=== PATIENT | male | born 1965 ===

== ENCOUNTER 2023-08-29 14:57 | Inpatient (IN) | payer MEDICARE, MEDICAID ==
[~2023-08-29] VITALS: Ht 165.1 cm; Wt 90.7 kg
[2023-08-29] MEDS ORDERED: OMEP20 PO (15:11)
[2023-08-29] MEDS ORDERED: LORA-1370 PO (15:11)
[2023-08-29] MEDS ORDERED: DOCU-385 PO (15:11)
[2023-08-29] MEDS ORDERED: CLON-441 PO (15:11)
[2023-08-29] MEDS ORDERED: DIVA500T53 PO ×2 (15:11)
[2023-08-29] MEDS ORDERED: OLAN5TAB52 PO (15:11)
[2023-08-29] MEDS ORDERED: TAMS0.4C94 PO (15:11)
[2023-08-29] MEDS ORDERED: MAGN-169 PO (15:18)
[2023-08-29] MEDS ORDERED: BENZ-227 PO (15:18)
[2023-08-29] MEDS ORDERED: HYDROCODONE/APAP PO (15:18)
[2023-08-29] MEDS ORDERED: CEPACLZ PO (15:18)
[2023-08-29] MEDS ORDERED: ZOLP-280 PO (15:18)
[2023-08-29] MEDS ORDERED: GUAI118L41 PO (15:18)
[2023-08-29] MEDS ORDERED: LORA-999 PO (15:18)
[2023-08-29] MEDS ORDERED: GUAI100L37 PO (15:18)
[2023-08-29] MEDS ORDERED: ZINC56.713 TP (15:18)
[2023-08-29] MEDS ORDERED: ACET-2247 PO (15:18)
[2023-08-29 15:30] LABS: COVID AG,FIA SOURCE NASAL SWAB
[2023-08-29 15:39] LABS: BASOPHILS % (AUTO) 0.5 % (0.0-2.0); EOSINOPHILS % (AUTO) 0.8 % (1.0-6.0); HEMATOCRIT 40.2 % (41-53); HEMOGLOBIN 13.7 g/dL (13.5-17.5); LYMPHOCYTES # (AUTO) 2.9 K/uL (1.0-4.8); LYMPHOCYTES % (AUTO) 41.8 % (22.0-44.0); MEAN CORPUSCULAR HEMOGLOBIN 31.4 pg (26.0-34.0); MEAN CORPUSCULAR VOLUME 92 fL (80-100); MONOCYTES # (AUTO) 0.8 K/uL (0.1-1.0); MONOCYTES % (AUTO) 11.2 % (2.0-9.0); NEUTROPHILS # (AUTO) 3.1 K/uL (1.8-7.7); NEUTROPHILS % (AUTO) 45.7 % (40.0-70.0); PLATELET COUNT (AUTO) 131 K/uL (150-450); RED BLOOD CELL COUNT(AUTO) 4.36 MIL/uL (4.50-5.90); RED CELL DISTRIBUTION WIDTH 13.2 % (11.5-14.5); WHITE BLOOD COUNT (AUTO) 6.8 K/uL (4.5-11.0)
[2023-08-29 15:47] LABS: PH,URINE DRUG SCREEN 6.5 (5.0-8.0)
[2023-08-29 15:51] LABS: SARS-COV2 (COVID) ANTIGEN,FIA Negative (Negative)
[2023-08-29 15:51] LABS: ANION GAP 9 mmol/L (8-16); CALCIUM, TOTAL 9.2 mg/dL (8.8-10.5); CARBON DIOXIDE 28 mmol/L (22-29); CHLORIDE 95 mmol/L (98-107); CREATININE 0.65 mg/dL (0.60-1.30); GLOMERULAR FILTR. RATE CALC > 60 mL/min (>60); GLUCOSE,RANDOM 169 mg/dL (70-110); POTASSIUM 3.8 mmol/L (3.5-5.1); SODIUM SERUM 132 mmol/L (136-145); UREA NITROGEN, BLOOD 5 mg/dL (7-18)
[2023-08-29 15:54] LABS: ALANINE AMINOTRANSFERASE 27 U/L (12-78); ALBUMIN 3.3 g/dL (3.4-5.0); ALKALINE PHOSPHATASE 41 U/L (46-116); ASPARTATE AMINOTRANSFERASE 32 U/L (15-37); BILIRUBIN,TOTAL 0.4 mg/dL (0.1-1.0); TOTAL PROTEIN, SERUM 7.3 g/dL (6.4-8.2)
[2023-08-29 15:54] LABS: ALCOHOL, URINE DRUG SCREEN NEGATIVE (NEGATIVE); AMPHET/METH SCREEN,URINE NEGATIVE (NEGATIVE); BARBITURATE SCREEN, URINE NEGATIVE (NEGATIVE); BENZODIAZEPINES SCREEN,URINE NEGATIVE (NEGATIVE); CANNABINOID SCREEN,URINE NEGATIVE (NEGATIVE); COCAINE SCREEN,URINE NEGATIVE (NEGATIVE); METHADONE SCREEN, URINE NEGATIVE (NEGATIVE); OPIATE SCREEN,URINE NEGATIVE (NEGATIVE); PHENCYCLIDINE SCREEN,URINE NEGATIVE (NEGATIVE)
[2023-08-29 15:59] LABS: ALCOHOL, BLOOD (SERUM) < 3 mg/dL (0-10)
[2023-08-29] MEDS: DOCUSATE SODIUM 250 MG CAPSULE PO SCH (21:00)
[2023-08-29] MEDS: OLANZapine 5 MG TABLET PO SCH (21:46)
[2023-08-29] MEDS: CloNIDine HCL 0.1 MG TABLET PO SCH (21:47)
[2023-08-30] MEDS: ALPRAZolam 0.5 MG TABLET PO PRN (04:03)
[2023-08-30] MEDS: OMEPRAZOLE 20 MG CAPSULE PO SCH (06:55)
[2023-08-30] MEDS: TAMSULOSIN HCL 0.4 MG CAPSULE PO SCH (11:25)
[2023-08-30] MEDS: LORATADINE 10 MG TABLET PO SCH (11:25)
[2023-08-30 17:02] VITALS: BP 148/105; PULSE 97; RESP 17
[2023-08-30] MEDS: DIVALPROEX SODIUM 500 MG ER TABLET PO SCH (18:20)
[2023-08-30 20:56] VITALS: BP 99/68; PULSE 92; RESP 18
[2023-08-30] MEDS: ZOLPIDEM TARTRATE 10 MG TABLET PO PRN (21:03)
[2023-08-30] MEDS ORDERED: PROMETHAZINE HCL 25 MG TABLET PO PRN (22:45)
[2023-08-30] MEDS ORDERED: LOPERAMIDE HCL 2 MG CAPSULE PO PRN (22:45)
[2023-08-30] MEDS ORDERED: TUBERCULIN, PURIFIED PROTEIN DERIVATIVE 5 TU/0.1 ML SYRINGE ID ONE (22:45)
[2023-08-30] MEDS ORDERED: MAG HYDROX/ALUMINUM HYD/SIMETH ES 30 ML SUSPENSION UDCUP PO PRN (22:45)
[2023-08-30] MEDS ORDERED: GuaiFENesin/D-METHORPHAN [SUGAR-FREE] 200-20MG/10 ML SYRUP UDCUP PO PRN (22:45)
[2023-08-30] MEDS ORDERED: ACETAMINOPHEN 325 MG TABLET PO PRN (22:45)
[2023-08-30] MEDS ORDERED: MAGNESIUM HYDROXIDE SUSPENSION 30 ML UDCUP PO PRN (22:45)
[2023-08-31 07:33] LABS: HEMOGLOBIN A1C 6.6 % (3.8-5.6)
[2023-08-31 07:49] LABS: FREE T4 (FREE THYROXINE) 1.06 ng/dL (0.76-1.46); THYROID STIMULATING HORMONE 4.16 uIU/mL (0.36-3.74)
[2023-08-31 08:39] LABS: BASOPHILS % (AUTO) 0.5 % (0.0-2.0); HEMATOCRIT 42.5 % (41-53); HEMOGLOBIN 14.4 g/dL (13.5-17.5); LYMPHOCYTES # (AUTO) 2.5 K/uL (1.0-4.8); LYMPHOCYTES % (AUTO) 34.8 % (22.0-44.0); MEAN CORPUSCULAR HEMOGLOBIN 31.4 pg (26.0-34.0); MEAN CORPUSCULAR HGB CONC 33.8 G/dL (31.0-37.0); MEAN CORPUSCULAR VOLUME 93 fL (80-100); MONOCYTES # (AUTO) 1.2 K/uL (0.1-1.0); MONOCYTES % (AUTO) 16.9 % (2.0-9.0); NEUTROPHILS # (AUTO) 3.4 K/uL (1.8-7.7); NEUTROPHILS % (AUTO) 46.8 % (40.0-70.0); PLATELET COUNT (AUTO) 113 K/uL (150-450); RED BLOOD CELL COUNT(AUTO) 4.56 MIL/uL (4.50-5.90); RED CELL DISTRIBUTION WIDTH 13.3 % (11.5-14.5); WHITE BLOOD COUNT (AUTO) 7.2 K/uL (4.5-11.0)
[2023-08-31] MEDS: THIAMINE 100 MG TABLET PO SCH (08:45)
[2023-08-31] MEDS: MULTIVITAMINS WITH MINERALS, THERAPEUTIC TABLET PO SCH (08:45)
[2023-08-31] MEDS: FOLIC ACID 1 MG TABLET PO SCH (08:45)
[2023-08-31 08:48] LABS: ANION GAP 8 mmol/L (8-16); CALCIUM, TOTAL 9.7 mg/dL (8.8-10.5); CARBON DIOXIDE 31 mmol/L (22-29); CHLORIDE 99 mmol/L (98-107); CREATININE 0.68 mg/dL (0.60-1.30); GLOMERULAR FILTR. RATE CALC > 60 mL/min (>60); GLUCOSE,RANDOM 130 mg/dL (70-110); POTASSIUM 4.1 mmol/L (3.5-5.1); SODIUM SERUM 138 mmol/L (136-145); UREA NITROGEN, BLOOD 10 mg/dL (7-18)
[2023-08-31 09:00] VITALS: BP 144/98; PULSE 97; RESP 18; TEMP 98.2
[2023-08-31] MEDS: HydrOXYzine PAMOATE 50 MG CAPSULE PO PRN (09:03)
[2023-08-31 16:23] VITALS: BP 130/70; PULSE 102; RESP 18
[2023-08-31 20:07] VITALS: BP 148/90; PULSE 73; RESP 18; TEMP 97.5
[2023-09-01 08:24] VITALS: BP 132/79; PULSE 76; RESP 16; TEMP 97.8
[2023-09-01] MEDS: OLANZapine 5 MG TABLET PO SCH (08:29)
[2023-09-01 16:29] VITALS: BP 136/80; PULSE 98; RESP 18
[2023-09-01 20:06] VITALS: BP 149/70; PULSE 93; RESP 18; TEMP 97.5
[2023-09-02 09:18] VITALS: BP 142/92; PULSE 100; RESP 18; TEMP 97.8
[2023-09-02 16:38] VITALS: BP 145/99; PULSE 110; RESP 18
[2023-09-02 20:10] VITALS: BP 144/85; PULSE 100; RESP 18; TEMP 98.4
[2023-09-03 09:30] VITALS: BP 128/68; PULSE 83; RESP 18; TEMP 98
[2023-09-03 16:30] VITALS: BP 106/72; PULSE 76
[2023-09-03 20:13] VITALS: BP 121/78; PULSE 78; RESP 18; TEMP 97.3
[2023-09-03 20:14] VITALS: BP 139/71; PULSE 75; RESP 18; TEMP 97.7
[2023-09-04 08:45] VITALS: BP 137/87; PULSE 103; RESP 18; TEMP 97.9
[2023-09-04] MEDS ORDERED: OLAN5TAB52 PO (11:46)
[2023-09-04] MEDS ORDERED: DIVA500T69 PO (11:46)
[2023-09-04] MEDS ORDERED: MELA5TAB40 PO (11:46)
[2023-09-04 20:01] VITALS: BP 153/83; PULSE 95; RESP 18; TEMP 97.9
[2023-09-04] MEDS: MELATONIN 5 MG TABLET PO SCH (20:08)
[2023-09-05 09:44] VITALS: BP 127/77; PULSE 95; RESP 18; TEMP 97.7
[2023-09-05 21:02] VITALS: BP 144/78; PULSE 92; RESP 18; TEMP 97.5
[2023-09-06 08:29] VITALS: BP 147/97; PULSE 100; RESP 18; TEMP 98.4
[2023-09-06] MEDS ORDERED: INSULIN LISPRO 100 UNITS/ML SQ PRN (09:45)
[2023-09-06] MEDS ORDERED: GLUCAGON,HUMAN RECOMBINANT 1 MG VIAL IM PRN (09:45)
[2023-09-06] MEDS ORDERED: METF-1211 PO (12:51)
[2023-09-07] MEDS ORDERED: MetFORMIN HCL 500 MG TABLET PO SCH (07:30)
== END 2023-09-06 18:07 | disposition home or self-care (01) | DRG 885 ==
LOC: EMS 14:57 → 3EC 08-30 15:37
PROVIDERS: ADMIT Psychiatry & Neurology Psychiatry; ATTEND Psychiatry & Neurology Psychiatry
DX: F25.9 Schizoaffective disorder, unspecified (principal); F84.0 Autistic disorder; Z20.822 Contact with and (suspected) exposure to COVID-19; N40.0 Benign prostatic hyperplasia without lower urinary tract symptoms; Z88.6 Allergy status to analgesic agent; Z88.8 Allergy status to other drugs, medicaments and biological substances; Z79.899 Other long term (current) drug therapy; D69.6 Thrombocytopenia, unspecified; K21.9 Gastro-esophageal reflux disease without esophagitis; K59.00 Constipation, unspecified; I10 Essential (primary) hypertension; E11.9 Type 2 diabetes mellitus without complications
CPT/HCPCS: 80048; 80053; 80061; 80164; 80307; 83036; 84153; 84439; 84443; 85025; 86592; 99285; G0480; Q9967